=== PATIENT | male | born 1940 | race Caucasian/White ===

== ENCOUNTER 2023-09-10 08:08 | Inpatient (IN) | payer MEDICARE, OTHER, SELFPAY ==
[2023-09-08] VITALS (8 sets, daily range): BP systolic 109–148; BP diastolic 59–93; BMI 21.4
--- NOTE | 2023-09-08 12:24 | ED.GENMED ---
History of Present Illness
General
Chief Complaint: Breathing Problem
Source: patient and spouse
Exam Limitations: none
Time Seen by Provider: 09/08/23 11:41
Travel History
Have you had any contact with someone who has COVID-19?: No
Do you have any symptoms of coronavirus? Fever > 100 degrees, chills, cough, shortness of breath, sore throat, loss of taste or smell, muscle aches, or headache?: Yes
Symptoms:: SOB, cough
History of Present Illness
History of Present Illness:
83-year-old male complaining of shortness of breath and cough. Patient has chronic COPD and is on intermittent oxygen as needed which is new the last 2 to 3 weeks. This has been a slow digression recently. However the last 2 days cough and
shortness of breath has been much more severe. He was on a course of antibiotics and inhaled steroids. This was completed. No chest pain or pleuritic pain.
Past History
Past History
ED Past Medical History: CAD (With stent placement), COPD and Hypercholesterolemia
ED Past Surgical History: Tonsilectomy
Social History
Tobacco: Former smoker
Alcohol: None
Drug: None
Personal:
Review of Systems
Review of Systems
All Other Systems: Not applicable
Constitutional: Denies fever
Respiratory: Reports cough; Denies hemoptysis
Cardiac: Denies chest pain or syncope
Phy Exam
Physical Exam
Physical Exam:
GENERAL: Alert and oriented. Mildly tachypneic at rest.
EYE: Orbits normal.
NECK: Supple, no significant adenopathy.
ENT: Pharynx without erythema
CARDIAC: Regular rate and rhythm without any obvious murmurs.
LUNGS: Recurrent dry cough, tight cough. Mild tachypnea. Diffuse mild expiratory wheezing
ABDOMEN: Soft, without focal tenderness or distention
NEUROLOGICAL: Alert and oriented , grossly non-focal
SKIN: Warm and dry, no rash or lesion, no discoloration, skin intact.
MUSCULOSKELETAL: No edema,no deformity.Good color
PSYCH: Normal and appropriate interaction.
Scores
Heart Failure Risk
Heart Failure Risk Score: Not Applicable
Course
Orders/Labs/Results
Orders:
Orders
09/08/23 11:40
EKG [Electrocardiogram (*1)] Urgent
Reason for Study: Shortness of Breath
EKG- Treatment ONCE
09/08/23 11:51
Cardiac Monitoring- Treatment ONCE
IV Insert/Care/Rem.- Treatment PRN
Albuterol Sulfate [Ventolin Nebules] 7.5 mg INH R NOW STA
Dexamethasone Sod Phosphate [Decadron] 8 mg IV NOW STA
Ipratropium/Albuterol Sulfate [Duoneb] 3 ml INH R NOW STA
O2 Therapy [RESP] Stat
Nasal Cannula Liter Flow: 2 LPM
Titrate/Wean O2 to maintain O2 sat greater than (%): 92
Pulse Ox/cont/shift [RESP] Stat
Quantity: 1
09/08/23 11:52
CR Chest Portable - 1 View Urgent
Comment:
Reason For Exam: sob
Reason Study Needs to be Portable: Unable to Transport
09/08/23 12:00
Blood Culture Q30M
[facility] Source: Blood/Venous
Specimen Description:
09/08/23 12:28
COVID-19 Antigen Urgent
Source: Nasal Swab
09/08/23 12:29
Basic Metabolic Panel Urgent
Complete Blood Count/With Diff Urgent
NT-proBNP Urgent
Troponin I Urgent
Blood Culture Q30M
[facility] Source: Blood/Venous
Specimen Description:
Influenza A+B Rapid Molecular Urgent
[facility] Source: Nasal Swab
Specimen Description:
Abnormal Lab Results
09/08/23
12:29
MCHC 32.8 L g/dL
(33.0-37.0)
Absolute Monos (auto) 0.8 H 10^3/uL
(0.1-0.6)
Absolute Eos (auto) 1.5 H 10^3/uL
(0-0.7)
Eosinophils % 13.8 H %
(0-6)
Carbon Dioxide 31 H mmol/L
(22-30)
BUN 26 H mg/dl
(9-20)
Glucose 123 H mg/dl
(70-99)
09/08/23 12:29
09/08/23 12:29
Vital Signs
Initial and Last Documented VS:
Initial Vital Signs
Temp Pulse Resp BP Pulse Ox
97.8 F 79 17 138/72 93
09/08/23 11:38 09/08/23 11:38 09/08/23 11:38 09/08/23 11:38 09/08/23 11:38
Last Documented Vital Signs
Temp Pulse Resp BP Pulse Ox
97.8 F 93 18 122/63 92
09/08/23 11:38 09/08/23 12:30 09/08/23 12:30 09/08/23 12:07 09/08/23 12:30
*Radiology
Radiology exam reviewed: preliminary read by ED provider (COPD) and radiology read reviewed (COPD)
*Pulse Oximetry
Patient hypoxic: yes
*Critical Care Note
Total Time (30-74mins, 75-104mins- exclusive of procedures): Not Applicable
Data Reviewed
Review of Other/Old Records Reveals: Labs, Records and Testing
Update Note
Update Note:
Patient still diffuse expiratory wheezing. Warrants inpatient management.
ED Attending Note
-
Portions of this chart may have been created with voice recognition software.� Occasional wrong word or��sound alike� substitutions may have occurred due to the inherent limitations of voice recognition software.
Discharge Plan
Departure
Patient Disposition: Admit
Date of Disposition: 09/08/23
Time of Disposition: 13:58
Presentation/result/management discussed w/ accepting MD/DO: Hospitalist
Discharge Problem:
COPD exacerbation
Prescriptions:
No Action
cefuroxime axetil 500 MG tablet
500 mg PO BID 7 Days Qty: 14 0RF
losartan 50 MG tablet
50 mg PO HS
amlodipine 5 MG tablet
5 mg PO DAILY
aspirin 81 MG tablet,delayed release (DR/EC)
81 mg PO BID
albuterol sulfate [Ventolin HFA] 90 MCG/PUFF HFA aerosol inhaler
2 puff inhalation Q4HPRN PRN (Reason: shortness of breath)
rosuvastatin 20 MG tablet
20 mg PO HS
metoprolol tartrate 25 MG tablet
25 mg PO BID
vitamin E (dl, acetate) 100 UNITS capsule
1 dose PO DAILY
hydrochlorothiazide 12.5 MG tablet
12.5 mg PO DAILY
multivitamin with folic acid [Tab-A-Nick] 1 TABLET tablet
1 tab PO DAILY
Referrals:
Milagro Guevara MD [Family Provider] -
Interventions
Interventions:
*Risk Screen - Suicide Last Done: 09/08/23 12:58
*General Assessment Last Done: 09/08/23 12:58
*Neglect/Abuse Screening Last Done: 09/08/23 12:58
ED- Fall Risk Assessment Last Done: 09/08/23 12:58
*ED COVID-19 Vaccine History Last Done: 09/08/23 11:39
ED- Cardiac Assessment Last Done: 09/08/23 12:58
ED- Pulmonary Assessment Last Done: 09/08/23 12:58
[2023-09-08] MEDS: DECADRON 8 MG IV (12:39)
[2023-09-08] MEDS: VENTOLIN NEBULES 7.5 MG INH (12:39)
[2023-09-08] MEDS: DUONEB 3 ML INH ×2 (12:39→19:25)
[2023-09-08 13:10] LABS: % Basophils 1.7 % (0-2); % Eosinophils 13.8 % (0-6); % Immature Granulocytes 0.2 % (0-0.5); % Lymphocytes 24.6 % (20.5-51.1); % Monocytes 7.8 % (1.7-9.3); % Neutrophils 51.9 % (42.2-75.2); Absolute Basophils 0.2 10^3/uL (0-0.2); Absolute Eosinophils 1.5 10^3/uL (0-0.7); Absolute Lymphocytes 2.6 10^3/uL (1.2-3.4); Absolute Monocytes 0.8 10^3/uL (0.1-0.6); Absolute Neutrophils 5.5 10^3/uL (1.4-6.5); Hematocrit 47.5 % (39.0-52.0); Hemoglobin 15.6 g/dL (13.0-18.0); Mean Corp Hgb Conc. 32.8 g/dL (33.0-37.0); Mean Corpuscular Hgb 29.4 pg (27.0-31.0); Mean Corpuscular Volume 89.5 fL (80.0-94.0); Mean Platelet Volume 9.5 fL (7.4-10.4); Nucleated Red Blood Cells % 0 % (-); Platelet Count 315 10^3/uL (130-400); Red Blood Cell Count 5.31 10^6/uL (4.70-6.10); Red Cell Dist. Width 14.1 % (11.5-14.5); White Blood Cell Count 10.6 10^3/uL (4.8-10.8)
[2023-09-08 13:17] LABS: Blood Urea Nitrogen 26 mg/dl (9-20); Calcium 9.9 mg/dl (8.4-10.2); Carbon Dioxide 31 mmol/L (22-30); Chloride 100 mmol/L (98-107); Glucose 123 mg/dl (70-99); Potassium 3.8 mmol/L (3.5-5.1); Sodium 142 mmol/L (135-145); eGFR > 60.00
[2023-09-08 13:27] LABS: COVID-19 Antigen Negative (Negative)
[2023-09-08 13:29] LABS: NT-proBNP 24.1 pg/ml; Troponin I < 0.012 ng/ml
--- NOTE | 2023-09-08 14:08 | HPS.HSE ---
Family Physician
-
Family Physician: Milagro Guevara
Chief Complaint
-
Shortness of breath and cough
History of Present Illness
83-year-old male with history of COPD and current recently started on oxygen as needed, hypertension and CAD with 2 stent who lives independently at home with , presented to the hospital complaining of shortness of breath and cough productive
cough clear yellowish phlegm over the last 4 days, he was exposed to his grandson when he is up respiratory tract symptoms shortly after experienced the above-mentioned symptoms, no subjective fever but admits chills, the shortness of breath with
exertion would bother him the most is a cough especially in the morning, despite using his rescue inhaler and nebulizer frequently throughout the day there is not much improvement, no chest pain or urinary or GI symptom, no headache or vision
change, chest x-ray in the ER clear, given breathing treatment and placed on oxygen in the ER.
He is awake, alert and oriented x 3 hold appropriate conversation, and at the bedside.
Medical History
Past Medical History
Past Medical History: Reports Other
Additional Past Medical History:
COPD
Coronary artery disease status post 2 stent
Hypertension
Dyslipidemia.
Social history: Quit smoking and alcohol more than 20 years ago, he is independent and lives with the ,
Family history: Reviewed and noncontributory
Past Surgical History: Reports Other
Social History
Unable to obtain full social history at this time due to: Other
Family History
Family History: Other
Allergies / Home Medications
Allergies reflects when Allergies were last updated in [employer].
Home Medications with original date entered in [employer]
Allergy/Medication List:
Allergies
Allergy/AdvReac Type Severity Reaction Status Date / Time
No Known Allergies Allergy Verified 09/08/23 11:37
Home Medications
albuterol sulfate 90 mcg/actuation aerosol inhaler (Ventolin HFA) 2 puff inhalation R Q4HPRN PRN shortness of breath 07/16/18
amlodipine 5 mg tablet 5 mg PO DAILY 07/16/18
aspirin 81 mg tablet,delayed release 81 mg PO BID 07/16/18
hydrochlorothiazide 12.5 mg tablet 12.5 mg PO DAILY 07/16/18
losartan 50 mg tablet 50 mg PO HS 07/16/18
metoprolol tartrate 25 mg tablet 25 mg PO BID 07/16/18
multivitamin with folic acid 400 mcg tablet (Tab-A-Nick) 1 tab PO DAILY 07/16/18
rosuvastatin 20 mg tablet 20 mg PO HS 07/16/18
azithromycin 250 mg tablet 250 mg PO MOWEFR 09/08/23
vitamin E (dl, acetate) 45 mg (100 unit) capsule 45 mg PO DAILY 09/08/23
Review of Systems
-
A 12 point ROS was completed and negative except as noted: Yes
Physical Exam
Vital Signs
Vital Signs
Temp Pulse Resp BP Pulse Ox
97.8 F 93 18 122/63 92
09/08/23 11:38 09/08/23 12:30 09/08/23 12:30 09/08/23 12:07 09/08/23 12:30
Physical exam:
General: Awake, alert and oriented x3, not in distress and holds appropriate conversation.
HEENT: On nasal cannula no active discharge, ecchymosis or bruising, moist lips, tongue and mucous membrane.
Eyes: No discharge or red conjunctiva, no nystagmus, pupils are reactive and equal
Neck:Supple, no JVD no bruit no goiter.
Respiratory: Normal AP contour and diameter, normal chest wall movement, normal respiratory effort, no respiratory distress,
Lungs: Diminished air entry bilaterally with bilateral wheezing and rhonchi and congested sound,
Heart: S1, S2 regular, normal rate, no added sound.
Gastrointestinal: Positive bowel sounds, soft, nontender, no guarding or rigidity or organomegaly
Musculoskeletal: , no chest wall abnormality or tenderness. All joints and extremities have good range of motion, no muscle tenderness or any joint swelling or tenderness.
Extremities: No pitting edema, good peripheral pulses, good range of motion
Skin: Warm and dry, no ulceration, normal color.
Neurological: Awake, alert and oriented x3, cranial nerve II-XII grossly intact, speech clear and comprehensive, good muscle tone, normal sensory and motor function
Psychiatric: Normal mood, normal thought and judgment, normal affect,
Physical Exam
General: Other
Laboratory Results
-
09/08/23 12:29
09/08/23 12:29
Laboratory Results
Troponin I < 0.012 ng/ml 09/08/23 12:29
Chest x-ray: No acute cardiopulmonary abnormality.
EKG showed normal sinus rhythm with PVCs, rate around 94, OH 160, QTc 450 otherwise no acute abnormalities.
Data Reviewed
-
Diagnostic Radiology: Image Personally Visualized and interpreted, Discussed with Patient and Discussed with Family
Medical Tests (Nuc Med, Echo, EKG etc): Image Personally Visualized and interpreted, Discussed with Patient and Discussed with Family
Lab Data: Labs Reviewed by me, Discussed with Patient and Discussed with Family
Old Records: Reviewed
Impression/Plan
-
IMPRESSION:
83-year-old male presented to the hospital was sign and symptom of COPD exacerbation likely by viral bronchitis was exposed to the grandson.
Acute COPD exacerbation
Acute bronchitis
Early pneumonia could be a possibility.
Hypertension
CAD status post 2 stent
This lipidemia
PLAN:
Breathing treatment with DuoNeb 4 times daily
Steroid with Decadron 6 mg every 8 hour could be tapered as needed
Cough medication Mucinex 1200 twice daily scheduled on Tessalon as needed
Monitor vital sign
Oxygen as needed keep O2 sat between 88 to 92%.
Hold diuretic and looks dry
IV fluid cautiously
Continue amlodipine and rosuvastatin.
Workups reviewed
All discussed with the patient and his
CODE STATUS full code
DVT prophylaxis: Lovenox
[2023-09-08] MEDS: TESSALON PERLES 200 MG PO ×2 (17:22→22:35)
[2023-09-08] MEDS: LOVENOX 40 MG SC (18:30)
[2023-09-08] MEDS: MUCINEX 1200 MG PO (18:30)
[2023-09-08] MEDS: DUONEB INH (18:52)
[2023-09-08] MEDS: ASPIR LOW (ENTERIC COATED) 81 MG PO (21:15)
[2023-09-08] MEDS: CRESTOR 20 MG PO (21:15)
[2023-09-08] MEDS: ZITHROMAX INFUSION 250 IV (21:15)
[2023-09-08] MEDS: LOPRESSOR 25 MG PO (21:15)
[2023-09-08] MEDS: DECADRON 6 MG IV (21:16)
[2023-09-08] MEDS: COZAAR 50 MG PO (21:28)
[2023-09-09] MEDS: DECADRON 6 MG IV (04:51)
[2023-09-09 07:00] VITALS: BP 152/78
[2023-09-09 07:22] LABS: % Basophils 0.2 % (0-2); % Immature Granulocytes 0.3 % (0-0.5); % Lymphocytes 19.8 % (20.5-51.1); % Monocytes 1.9 % (1.7-9.3); % Neutrophils 77.8 % (42.2-75.2); Absolute Lymphocytes 1.3 10^3/uL (1.2-3.4); Absolute Monocytes 0.1 10^3/uL (0.1-0.6); Hematocrit 43.8 % (39.0-52.0); Hemoglobin 14.8 g/dL (13.0-18.0); Mean Corp Hgb Conc. 33.8 g/dL (33.0-37.0); Mean Corpuscular Volume 88.7 fL (80.0-94.0); Mean Platelet Volume 9.5 fL (7.4-10.4); Nucleated Red Blood Cells % 0 % (-); Platelet Count 309 10^3/uL (130-400); Red Blood Cell Count 4.94 10^6/uL (4.70-6.10); Red Cell Dist. Width 13.8 % (11.5-14.5); White Blood Cell Count 6.5 10^3/uL (4.8-10.8)
[2023-09-09] MEDS: DUONEB 3 ML INH ×4 (07:33→20:13)
[2023-09-09 07:47] LABS: Blood Urea Nitrogen 27 mg/dl (9-20); Calcium 9.6 mg/dl (8.4-10.2); Carbon Dioxide 28 mmol/L (22-30); Chloride 101 mmol/L (98-107); Estimated Creatinine Clearance 56 ml/min; Glucose 131 mg/dl (70-99); Potassium 4.4 mmol/L (3.5-5.1); Sodium 136 mmol/L (135-145); eGFR > 60.00
--- NOTE | 2023-09-09 07:53 | W.PN.HOSP.TC ---
Today's Communication/Plan
-
Dexamethasone to 4 mg every 12
Continue nebs
Oxygen titrated
Obtain sputum
Check procalcitonin if within normal limits can change to p.o. Zithromax for anti-inflammatory effect
Assessment / Plan
Assessment / Plan
83-year-old male with history of COPD and current recently started on oxygen as needed, hypertension and CAD with 2 stent who lives independently at home with , presented to the hospital complaining of shortness of breath and cough productive
cough clear yellowish phlegm over the last 4 days, he was exposed to his grandson when he is up respiratory tract symptoms shortly after experienced the above-mentioned symptoms, no subjective fever but admits chills, the shortness of breath with
exertion would bother him the most is a cough especially in the morning, despite using his rescue inhaler and nebulizer frequently throughout the day there is not much improvement, no chest pain or urinary or GI symptom, no headache or vision
change, chest x-ray in the ER clear, given breathing treatment and placed on oxygen in the ER.
He is awake, alert and oriented x 3 hold appropriate conversation, and at the bedside.
Patient is fully vaccinated for COVID with boosters and influenza vaccine this year/also Pneumovax.
Acute COPD exacerbation
Acute bronchitis
Early pneumonia could be a possibility.
Hypertension
CAD status post 2 stent
This lipidemia
PLAN:
Breathing treatment with DuoNeb 4 times daily
Steroid with Decadron 6 mg every 8 hour could be tapered as needed/presentation this morning which changed to 4 mg every 12
Cough medication Mucinex 1200 twice daily scheduled on Tessalon as needed
Monitor vital sign
Oxygen as needed keep O2 sat between 88 to 92%.
Hold diuretic and looks dry
IV fluid cautiously
For completeness obtain procalcitonin/try and obtain a sputum
Continue amlodipine and rosuvastatin.
Workups reviewed
All discussed with the patient and his
CODE STATUS full code
DVT prophylaxis: Lovenox
Anticipated Discharge: 24 - 48 hours
Subjective/Interval History
-
Date of Service: September 09, 2023
Persisting difficult to produce sputum cough no chest pain presently on 2 L nasal flow oxygen and getting respiratory treatment
Objective Data
-
Labs:
Laboratory Results
09/09/23
06:40
WBC 6.5
Hgb 14.8
Hct 43.8
Plt Count 309
Sodium 136
Potassium 4.4
Chloride 101
Carbon Dioxide 28
BUN 27 H
Creatinine 0.9
Glucose 131 H
Calcium 9.6
Vital Signs:
Vital Signs
Temp Pulse Resp BP Pulse Ox
97.7 F 129 20 139/66 91
09/08/23 21:13 09/08/23 21:28 09/08/23 21:13 09/08/23 21:28 09/08/23 21:13
I&O
09/08/23 09/09/23 09/10/23
05:59 06:59 06:59
Intake Total 250 / 250
Balance 250 / 250
Review of Systems
-
History Source: Patient
Constitutional: Denies Fever
EENT: Reports No Symptoms Reported
Respiratory: Reports Cough and Wheezing
Cardiac: Reports No Symptoms
Abdomen/GI: Reports No Symptoms
Physical Exam
-
General: Well Developed
HEENT: Normocephalic
Respiratory: Wheezes, Rhonchi and Decreased Breath Sounds
Cardiac: Regular Rhythm
GI: Soft, Nontender and Nondistended
Neuro: Awake, Alert and Oriented
Psych: Calm
Data Reviewed
-
Total Time Spent with Patient (in minutes): 56
Labs: Labs Reviewed by me
[2023-09-09] MEDS: LOPRESSOR 25 MG PO ×2 (08:13→21:24)
[2023-09-09] MEDS: NORVASC 5 MG PO (08:14)
[2023-09-09] MEDS: ORETIC 12.5 MG PO (08:14)
[2023-09-09] MEDS: MUCINEX 1200 MG PO ×2 (08:14→21:22)
[2023-09-09] MEDS: ASPIR LOW (ENTERIC COATED) 81 MG PO ×2 (08:14→21:23)
[2023-09-09] MEDS: DECADRON IV ×2 (08:16→08:23)
[2023-09-09 09:14] LABS: Procalcitonin < 0.05 ng/ml (0.0-0.25)
--- NOTE | 2023-09-09 13:45 | CM ---
Addendum entered by Rosalva Crowley 09/09/23 13:53:
Oxygen vendor: [employer] #[phone]
DME: oxygen, nebulizer
Original Note:
Met with patient and spouse at bedside; initial assessment completed
KOHLER form explained and signed @ 1342
Pharmacy verified: [facility]
Patient reported that he and his live in an one floor in-law suite on their daughter's property; 3 steps to enter; bathroom has walk-in shower; grab bar and shower chair
PLOF: reported he is independent with ambulation, steps, and ADLs; Drives
SNF/Rehab/Home Care utilization history: NONE
Transport: will provide transport home
Discharge plan to be determined pending hospital course; director case management will follow up if there are any DC needs
[2023-09-09] MEDS: TESSALON PERLES 200 MG PO ×2 (14:26→21:28)
[2023-09-09 14:30] VITALS: BMI 21.4
[2023-09-09 15:00] VITALS: BP 119/62
[2023-09-09] MEDS: LOVENOX 40 MG SC (17:55)
[2023-09-09] MEDS: ZITHROMAX INFUSION 250 IV (21:11)
[2023-09-09] MEDS: CRESTOR 20 MG PO (21:23)
[2023-09-09] MEDS: COZAAR 50 MG PO (21:23)
[2023-09-09] MEDS: DECADRON 4 MG IV (21:25)
[2023-09-09] MEDS: FLUSH (NSS) 4 FLUSH IV (21:29)
[2023-09-09 23:20] VITALS: BP 125/71
[2023-09-10 06:48] LABS: Hematocrit 45.3 % (39.0-52.0); Hemoglobin 14.9 g/dL (13.0-18.0); Mean Corp Hgb Conc. 32.9 g/dL (33.0-37.0); Mean Corpuscular Volume 88.1 fL (80.0-94.0); Mean Platelet Volume 9.7 fL (7.4-10.4); Platelet Count 339 10^3/uL (130-400); Red Blood Cell Count 5.14 10^6/uL (4.70-6.10); Red Cell Dist. Width 14.1 % (11.5-14.5); White Blood Cell Count 14.6 10^3/uL (4.8-10.8)
[2023-09-10 07:12] LABS: Blood Urea Nitrogen 32 mg/dl (9-20); Calcium 9.7 mg/dl (8.4-10.2); Carbon Dioxide 27 mmol/L (22-30); Chloride 100 mmol/L (98-107); Estimated Creatinine Clearance 63 ml/min; Glucose 133 mg/dl (70-99); Potassium 4.4 mmol/L (3.5-5.1); Sodium 138 mmol/L (135-145); eGFR > 60.00
[2023-09-10] MEDS: NORVASC 5 MG PO (07:53)
[2023-09-10] MEDS: LOPRESSOR 25 MG PO ×2 (07:54→20:29)
[2023-09-10] MEDS: MUCINEX 1200 MG PO ×2 (07:54→20:29)
[2023-09-10] MEDS: ASPIR LOW (ENTERIC COATED) 81 MG PO ×2 (07:54→20:29)
[2023-09-10] MEDS: DUONEB 3 ML INH ×4 (07:54→19:32)
[2023-09-10] MEDS: DECADRON 4 MG IV ×2 (07:54→20:28)
[2023-09-10] MEDS: ORETIC 12.5 MG PO (08:01)
[2023-09-10 08:07] VITALS: BP 149/79
--- NOTE | 2023-09-10 10:13 | W.PN.HOSP.TC ---
Today's Communication/Plan
-
see outlined plan
Assessment / Plan
Assessment / Plan
83-year-old male with history of COPD and current recently started on oxygen as needed, hypertension and CAD with 2 stent who lives independently at home with , presented to the hospital complaining of shortness of breath and cough productive
cough clear yellowish phlegm over the last 4 days, he was exposed to his grandson when he is up respiratory tract symptoms shortly after experienced the above-mentioned symptoms, no subjective fever but admits chills, the shortness of breath with
exertion would bother him the most is a cough especially in the morning, despite using his rescue inhaler and nebulizer frequently throughout the day there is not much improvement, no chest pain or urinary or GI symptom, no headache or vision
change, chest x-ray in the ER clear, given breathing treatment and placed on oxygen in the ER.
He is awake, alert and oriented x 3 hold appropriate conversation, and at the bedside.
Patient is fully vaccinated for COVID with boosters and influenza vaccine this year/also Pneumovax.
Assessment:
Chronic hypoxemic respiratory failure on 2L NC
Acute COPD exacerbation
Acute bronchitis
- still with wheezing this AM
- continue IV Decadron, 4mg q12h
- add doxycycline 100mg BID x 5 days; stop Azithromycin. Noted procal negative.
- continue nebs scheduled and prn
- mucolytics therapy
- pulm consulted
Essential HTN - continue Amlodipine/HCTZ/ARB/BB
CAD s/p stents
HLD
- continue ASA/statin
reports concern for dysphagia outpatient with VSE planned in 48 hours
- ST eval here and VSE ordered.
DVT ppx: Lovenox
Code: Full
Anticipated Discharge: > 48 hours
Subjective/Interval History
-
Date of Service: September 10, 2023
he states he feels 'a little bit' better but remains with wheezing and SOB
denies cp/f/c. No other complaints
Objective Data
-
Labs:
Laboratory Results
09/10/23
06:24
WBC 14.6 H
Hgb 14.9
Hct 45.3
Plt Count 339
Sodium 138
Potassium 4.4
Chloride 100
Carbon Dioxide 27
BUN 32 H
Creatinine 0.8
Glucose 133 H
Calcium 9.7
Vital Signs:
Vital Signs
Temp Pulse Resp BP Pulse Ox
97.4 F 95 16 149/79 99
09/10/23 08:07 09/10/23 08:07 09/10/23 08:07 09/10/23 08:07 09/10/23 08:30
I&O
09/09/23 09/10/23 09/11/23
06:59 06:59 06:59
Intake Total 1510 / 1510
Balance 1510 / 1510
Physical Exam
-
General: No Apparent Distress
HEENT: Normocephalic and Atraumatic
Respiratory: Wheezes and Rhonchi
Cardiac: Regular Rhythm and S1/S2
GI: Soft and Nontender
Genito-urinary: No Costovertebral Tender
Musculoskeletal: No Edema
Neuro: AO x 3
Psych: Calm
Data Reviewed
-
Total Time Spent with Patient (in minutes): 43
Labs: Labs Reviewed by me
[2023-09-10] MEDS: VIBRAMYCIN 100 MG PO ×2 (12:57→20:29)
[2023-09-10 14:29] VITALS: BP 127/70; PULSE 85; O2SAT 94
--- NOTE | 2023-09-10 14:42 | PTOTSP ---
Pt is functionally independent without AD. PT will sign off.
--- NOTE | 2023-09-10 15:01 | CON.PUL ---
Consultation
Consultation Request
Date/Time Consultation Requested: 09/10/2023 - 1028
Date/Time Consultation Performed: 09/10/2023 - 0
Requesting Provider: Dr. Marie
Performing Provider: Dr. Bergman
Reason for Consultation: COPD exacerbation
Medical History
-
Chief Complaint: SOB
History of Present Illness:
83-year-old male with a past medical history of COPD/asthma, pulmonary nodule, GERD and former tobacco use disorder who presents with shortness of breath. Of note, patient follows with us in the [facility] office with Kiera Sandoval/James Beckham with
last office visit on 08/15/2023. Azithromycin TIW was started at that visit, and is continued on Wixela 500mcg with as needed albuterol + DuoNebs 2�3 times daily which was recommended to him. Also recommended Mucinex and Tessalon Perles. He
recommended to continue supplemental oxygen at 2 L/min with exertion. On 09/07 he presented to the ER where he was tachycardic and requiring 2 L/min nasal cannula with SpO2 91%. CXR showed no acute cardiopulmonary process. He was started on
antibiotics, DuoNebs and his home medications and then admitted to the hospitalist service. He has remained on 2-2.5 L/min nasal cannula and now pulmonary consulted for additional recommendations.
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
PSHx: Coronary stents X2, tonsillectomy, back surgery
Past Medical History
Past Medical History: Other (above as per HPI)
Past Surgical History: Other (above as per HPI)
Social History
Tobacco: Former Smoker
Alcohol: None
Drug: None
Family History
Family History: Reviewed & Not Pertinent
Allergies / Home Medications
Allergies
Allergy/AdvReac Type Severity Reaction Status Date / Time
No Known Allergies Allergy Verified 09/08/23 11:37
Home Medications
Medication Instructions Recorded Confirmed Last Taken Type
albuterol sulfate 90 mcg/actuation 2 puff inhalation R Q4HPRN PRN 07/16/18 09/08/23 Unknown History
aerosol inhaler (Ventolin HFA) shortness of breath
amlodipine 5 mg tablet 5 mg PO DAILY Blood Pressure 07/16/18 09/08/23 09/08/23 History
aspirin 81 mg tablet,delayed 81 mg PO BID Blood Clot 07/16/18 09/08/23 09/08/23 History
release Prevention/Tx
hydrochlorothiazide 12.5 mg tablet 12.5 mg PO DAILY Fluid 07/16/18 09/08/23 09/08/23 History
Retention/Swelling
losartan 50 mg tablet 50 mg PO HS Blood Pressure 07/16/18 09/08/23 09/07/23 History
metoprolol tartrate 25 mg tablet 25 mg PO BID Blood Pressure 07/16/18 09/08/23 09/08/23 History
multivitamin with folic acid 400 1 tab PO DAILY Supplement 07/16/18 09/08/23 09/08/23 History
mcg tablet (Tab-A-Nick)
rosuvastatin 20 mg tablet 20 mg PO HS High Cholesterol 07/16/18 09/08/23 09/07/23 History
azithromycin 250 mg tablet 250 mg PO MOWEFR Infection 09/08/23 09/08/23 09/07/23 History
vitamin E (dl, acetate) 45 mg (100 45 mg PO DAILY Supplement 09/08/23 09/08/23 09/08/23 History
unit) capsule
Review of Systems
-
History Source: Patient
All other systems: Negative unless noted (12 point ROS performed and is negative unless mentioned above.)
Vitals / Labs / Diagnostic Testing
Vital Signs
Temp Pulse Resp BP Pulse Ox
97.5 F 88 18 122/70 92
09/10/23 15:03 09/10/23 15:14 09/10/23 15:14 09/10/23 15:03 09/10/23 15:14
Lab Data
09/10/23 06:24
09/10/23 06:24
Microbiology
09/08/23 14:46 Blood/Venous Blood Culture - Preliminary
No Growth in 48 hours- Final report to follow
09/08/23 12:29 Blood/Venous Blood Culture - Preliminary
No Growth in 48 hours- Final report to follow
09/08/23 12:29 Nasal Swab Influenza Types A & B (ROULA) - Final
Negative for Influenza A & B, NAAT
Negative results must be combined with clinical observations
and patient history.
Nucleic Acid Amplification test (NAAT)performed on the
[employer] platform.
Diagnostic Testing:
Physical Exam
-
HEENT: Normocephalic and Anicteric
Cardiovascular: S1/S2 and Peripheral Edema (negative)
Respiratory: Wheeze (negative), Rales, Rhonchi (negative), Non-Labored Respirations and Other (coarse BS bilaterally)
GI: Soft, Non Distended, Non Tender and Normal Bowel Sounds
Neurology: Awake and Alert
Skin: Warm and Dry
General: Respiratory Distress (negative) and Comfortable
Assessment
-
Assessment: 83-year-old male with a past medical history of COPD/asthma, pulmonary nodule, GERD and former tobacco use disorder who presents with shortness of breath. Of note, patient follows with us in the [facility] office with Kiera Sandoval/James
Bhavani with last office visit on 08/15/2023. Azithromycin TIW was started at that visit, and is continued on Wixela 500mcg with as needed albuterol + DuoNebs 2�3 times daily which was recommended to him. Also recommended Mucinex and Tessalon
Perles. He recommended to continue supplemental oxygen at 2 L/min with exertion. On 09/07 he presented to the ER where he was tachycardic and requiring 2 L/min nasal cannula with SpO2 91%. CXR showed no acute cardiopulmonary process. He was
started on antibiotics, DuoNebs and his home medications and then admitted to the hospitalist service. He has remained on 2-2.5 L/min nasal cannula and now pulmonary consulted for additional recommendations.
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
history of skin cancer
Impression:
#Acute COPD exacerbation (moderate severity at baseline with post-BD FEV1 of 1.3L/55%)
#Acute on chronic respiratory failure with hypoxemia - currently on 2.5L/min NC
#Abnormal swallow study (done today) which is concerning for esophageal dysphagia
#Pulmonary nodules -
Multiple pulmonary nodules and pulmonary masses with the largest measures 4.5 cm bandlike in the medial CROW at the level of the AP window. Its interval development since CT chest on 05/31/2023 suggest a likely
benign etiology.
New 4 cm pleural-based area of parenchymal airspace disease in the posterior medial basilar portion of the LLL, with at PET avidity of 4.5 SUV and 4.7 SUV max on delayed imaging.
#Former tobacco use disorder
Plan:
- Continue LABA/ICS with Symbicort and prn nebulized bronchodilators (DuoNebs QID)
- Continue systemic steroids with decadron 4mg IV q12hr and taper as tolerate
- Aspiration precautions as per INFORMATION SYSTEMS SECURITY ANALYST
- Maintain SpO2 >88% and <96% - Prior 6 MWT from 08/15/2023 showed yoshi SpO2 of 91% and patient did not require oxygen therapy after walking 750 feet total
- Maintain MAP >65
- Continue Doxy 100mg PO q12hr (assure pt is eating prior to consuming PO ABx as this can cause nausea/vomiting)
- Follow up blood Cx X2 (collected 09/07); check sputum Cx and legionella/strep pneumonia urine antigens
- Trend leukocytes
- Continue mucolytics
- Goal HR 60-100 bpm
- Replete electrolytes with goal K>4, Mg>2
- DVT ppx: LMWH
I have spent 56 minutes with a moderate level of medical decision making. I have reviewed prior imaging including PET/CT from 06/2023 and CXR from 09/08/2023, and also reviewed outpatient office notes from [facility]/pulmonary.
Data:
CXR 09-08-2023: No acute cardiopulmonary process.
PET/CT Whole-Body Skull-mid thigh 06-28-2023:
IMPRESSION:
There are several probably benign pulmonary lesions which demonstrate low-level FDG avidity, however, some areas increase in FDG avidity on delayed imaging and follow-up of these pulmonary lesions with CT chest in 6 months is recommended to exclude
more aggressive pathology.
These lesions include:
1). 1.5 cm spiculated pulmonary density in the medial aspect of the right upper lobe measuring 2.2 SUV max on initial imaging and 2.0 SUV max on delayed imaging
2). 1.9 cm pleural-based pulmonary lesion in the superior segment of the right lower lobe which measures 2.1 SUV max on initial imaging and 2.4 SUV max on delayed imaging
3). New 4.5 cm bandlike area of parenchymal airspace disease in the medial aspect of the left upper lobe at the level of the aorticopulmonary window measuring 8.2 SUV max on initial imaging an 8.7 SUV max on delayed imaging. Despite the relatively
high FDG avidity of this area, its interval development since the 05/31/2023 CT scan suggests probable benign etiology.
4). New 4 cm pleural-based area of parenchymal airspace disease in the posterior medial basilar portion of the left lower lobe which measures 4.5 SUV max on initial imaging and 4.7 SUV max on delayed imaging
5). New 1 cm pulmonary mass in the posterior basilar portion of the lingula which measures 1.6 SUV maximum initial imaging and 1.9 SUV max on delayed imaging
PFT 07-26-2022:
FEV1/FVC: 49 --> 51
FEV1: 63% --> 72% (1.73L) which is a +15% change with BD
FVC: 90% --> 100% (3.41L) which is a +11% change with BD
NWW47-35%: 33% --> 42%, which is a +26% change with BD
T% (6.9L)
RV: 118%
DLco: 24%
VA: 83% (5.26L)
DLco/VA: 28%
[2023-09-10 15:03] VITALS: BP 122/70
--- NOTE | 2023-09-10 15:06 | PTOTSP ---
Video Swallow Examination
Patient presents with WFL oral, mild pharyngeal dysphagia, and concern for possible esophageal dysphagia on sweep of esophagus (retention). Aspiration with a spontaneous effective cough occurred with consecutive drinking of mildly thick liquids due
to decreased sustained laryngeal closure. There was mild-moderate vallecular residue with solids due to decreased tongue based retraction which minimally reduced with secondary swallows and liquid wash.
Recommend:
1. IDDSI Level 6 (Soft/bite sized), IDDSI Level 0 (Thin Liquids)
2. Strategies: small sips/bites, double swallows, reflux precautions
3. Medications - in applesauce
4. GI consult to assess for esophageal dysphagia
5. Will continue to follow for dysphagia tx at the acute care level for pharyngeal exercises and education in compensations.
[2023-09-10] MEDS: LOVENOX 40 MG SC (18:35)
[2023-09-10] MEDS: MELATONIN 5 MG PO (21:41)
[2023-09-10] MEDS: COZAAR 50 MG PO (21:41)
[2023-09-10] MEDS: CRESTOR 20 MG PO (21:41)
[2023-09-10 23:28] VITALS: BP 115/62
[2023-09-11 06:51] LABS: Hematocrit 43.8 % (39.0-52.0); Hemoglobin 14.9 g/dL (13.0-18.0); Mean Corpuscular Hgb 29.7 pg (27.0-31.0); Mean Corpuscular Volume 87.4 fL (80.0-94.0); Mean Platelet Volume 9.7 fL (7.4-10.4); Platelet Count 322 10^3/uL (130-400); Red Blood Cell Count 5.01 10^6/uL (4.70-6.10); Red Cell Dist. Width 14.2 % (11.5-14.5); White Blood Cell Count 13.2 10^3/uL (4.8-10.8)
[2023-09-11 07:11] LABS: Blood Urea Nitrogen 37 mg/dl (9-20); Calcium 9.5 mg/dl (8.4-10.2); Carbon Dioxide 27 mmol/L (22-30); Chloride 104 mmol/L (98-107); Estimated Creatinine Clearance 56 ml/min; Glucose 127 mg/dl (70-99); Potassium 4.4 mmol/L (3.5-5.1); Sodium 136 mmol/L (135-145); eGFR > 60.00
[2023-09-11] MEDS: ORETIC 12.5 MG PO (07:33)
[2023-09-11] MEDS: ASPIR LOW (ENTERIC COATED) 81 MG PO ×2 (07:33→19:55)
[2023-09-11] MEDS: MUCINEX 1200 MG PO ×2 (07:33→19:55)
[2023-09-11] MEDS: VIBRAMYCIN 100 MG PO ×2 (07:34→19:55)
[2023-09-11] MEDS: DECADRON 4 MG IV ×2 (07:34→19:54)
[2023-09-11] MEDS: LOPRESSOR 25 MG PO ×2 (07:34→19:55)
[2023-09-11] MEDS: NORVASC 5 MG PO (07:34)
[2023-09-11] MEDS: DUONEB 3 ML INH ×4 (07:36→20:05)
[2023-09-11 08:00] VITALS: BP 138/71
--- NOTE | 2023-09-11 08:17 | W.PN.PUL3 ---
Today's Communication / Plan
-
Continue systemic steroids and wean to OCS once patient is now wheezing or having frequent coughing spells
Continue supplemental oxygen and titrate to maintain SpO2 >88%
Up OOB as tolerated
Encourage incentive spirometer
Pulmonary will continue to follow
Assessment
-
Assessment: 83-year-old male with a past medical history of COPD/asthma, pulmonary nodule, GERD and former tobacco use disorder who presents with shortness of breath. Of note, patient follows with us in the [facility] office with Kiera Sandoval/James
Bhavani with last office visit on 08/15/2023. Azithromycin TIW was started at that visit, and is continued on Wixela 500mcg with as needed albuterol + DuoNebs 2�3 times daily which was recommended to him. Also recommended Mucinex and Tessalon
Mazin. He recommended to continue supplemental oxygen at 2 L/min with exertion. On 09/07 he presented to the ER where he was tachycardic and requiring 2 L/min nasal cannula with SpO2 91%. CXR showed no acute cardiopulmonary process. He was
started on antibiotics, DuoNebs and his home medications and then admitted to the hospitalist service. He has remained on 2-2.5 L/min nasal cannula and now pulmonary consulted for additional recommendations.
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
history of skin cancer
Impression:
#Acute COPD exacerbation (moderate severity at baseline with post-BD FEV1 of 1.3L/55%) - he believes he caught a virus from his 3 year old grandchild
#Acute on chronic respiratory failure with hypoxemia - currently on 2.5L/min NC
#Abnormal swallow study (done 09/10/2023) which is concerning for esophageal dysphagia
#Pulmonary nodules -
Multiple pulmonary nodules and pulmonary masses with the largest measures 4.5 cm bandlike in the medial CROW at the level of the AP window. Its interval development since CT chest on 05/31/2023 suggest a likely
benign etiology.
New 4 cm pleural-based area of parenchymal airspace disease in the posterior medial basilar portion of the LLL, with at PET avidity of 4.5 SUV and 4.7 SUV max on delayed imaging.
#Former tobacco use disorder
Plan:
- Continue LABA/ICS with Symbicort and prn nebulized bronchodilators (DuoNebs QID)
- Continue systemic steroids with decadron 4mg IV q12hr and taper as tolerated --> once patient is not wheezing or having frequent coughing spells then we can TRX to OCS starting at 40mg
- Aspiration precautions as per CUSHION MAT MAKER
- Maintain SpO2 >88% and <96% - Prior 6 MWT from 08/15/2023 showed yoshi SpO2 of 91% and patient did not require oxygen therapy after walking 750 feet total
- Maintain MAP >65
- Continue Doxy 100mg PO q12hr (assure pt is eating prior to taking PO ABx as this can cause significant nausea/vomiting)
- Follow up blood Cx X2 (collected 09/07); check sputum Cx if pt can provide a reliable sample; negative urine legionella/strep pneumonia antigens
- Trend leukocytes
- Continue mucolytics
- outpatient management of his lung nodules --> will order for end of this month as this will be a 3 month interval from his last PET/CT done on 06/28/2023
- Goal HR 60-100 bpm
- Replete electrolytes with goal K>4, Mg>2
- DVT ppx: LMWH
I have spent 37 minutes with a moderate level of medical decision making. I have reviewed prior imaging including PET/CT from 06/2023 and CXR from 09/08/2023, and also reviewed outpatient office notes from [facility]/pulmonary.
Data:
CXR 09-08-2023: No acute cardiopulmonary process.
PET/CT Whole-Body Skull-mid thigh 06-28-2023:
IMPRESSION:
There are several probably benign pulmonary lesions which demonstrate low-level FDG avidity, however, some areas increase in FDG avidity on delayed imaging and follow-up of these pulmonary lesions with CT chest in 6 months is recommended to exclude
more aggressive pathology.
These lesions include:
1). 1.5 cm spiculated pulmonary density in the medial aspect of the right upper lobe measuring 2.2 SUV max on initial imaging and 2.0 SUV max on delayed imaging
2). 1.9 cm pleural-based pulmonary lesion in the superior segment of the right lower lobe which measures 2.1 SUV max on initial imaging and 2.4 SUV max on delayed imaging
3). New 4.5 cm bandlike area of parenchymal airspace disease in the medial aspect of the left upper lobe at the level of the aorticopulmonary window measuring 8.2 SUV max on initial imaging an 8.7 SUV max on delayed imaging. Despite the relatively
high FDG avidity of this area, its interval development since the 05/31/2023 CT scan suggests probable benign etiology.
4). New 4 cm pleural-based area of parenchymal airspace disease in the posterior medial basilar portion of the left lower lobe which measures 4.5 SUV max on initial imaging and 4.7 SUV max on delayed imaging
5). New 1 cm pulmonary mass in the posterior basilar portion of the lingula which measures 1.6 SUV maximum initial imaging and 1.9 SUV max on delayed imaging
PFT 07-26-2022:
FEV1/FVC: 49 --> 51
FEV1: 63% --> 72% (1.73L) which is a +15% change with BD
FVC: 90% --> 100% (3.41L) which is a +11% change with BD
CED66-86%: 33% --> 42%, which is a +26% change with BD
T% (6.9L)
RV: 118%
DLco: 24%
VA: 83% (5.26L)
DLco/VA: 28%
Subjective Data
-
Date of Service:
Date of Service: September 11, 2023
Chief Complaint: Pulmonary Follow Up
Subjective:
Patient seen and evaluated this morning at bedside. He says he's been getting heartburn after eating today. Currently on 2.5 L/min nasal cannula. No acute events reported from overnight. He denies headache, chest pain, fevers or chills.
Review of Systems
General: Other (Negative unless mentioned above)
Objective Data
Data Reviewed
Vital Signs / I&O / Oxygen:
Vital Signs
Temp Pulse Resp BP Pulse Ox
97.4 F 86 20 138/71 95
09/11/23 08:00 09/11/23 08:00 09/11/23 08:00 09/11/23 08:00 09/11/23 08:00
Intake and Output
09/10/23 09/11/23 09/12/23
06:59 06:59 06:59
Intake Total 1510 / 1510
Balance 1510 / 1510
SaO2 95
Nasal Cannula flow liters per 2
minute
Physical Exam
General: Respiratory Distress (negative) and Comfortable
HEENT: Normocephalic and Anicteric
Cardiovascular: S1-S2 and Peripheral Edema (negative)
Respiratory: Wheeze (lower lobes to middle lung swan b/l), Crackles (negative), Rhonchi (negative) and Non-Labored Respirations
GI: Soft, Non Distended and Non Tender
Neurology: AO x 3
Skin: Warm and Dry
Labs/Micro/Reports
Lab Data
09/11/23 06:06
09/11/23 06:06
Microbiology
09/08/23 14:46 Blood/Venous Blood Culture - Preliminary
No Growth in 48 hours- Final report to follow
09/08/23 12:29 Blood/Venous Blood Culture - Preliminary
No Growth in 48 hours- Final report to follow
09/08/23 12:29 Nasal Swab Influenza Types A & B (ROULA) - Final
Negative for Influenza A & B, NAAT
Negative results must be combined with clinical observations
and patient history.
Nucleic Acid Amplification test (NAAT)performed on the
[employer] platform.
--- NOTE | 2023-09-11 09:45 | PTOTSP ---
Orders received. Chart reviewed. Pt admitted with COPD exacerbation. Currently independent with basic self care, transfers and mobility in room. Nursing in agreement. No skilled OT indicated at this time
--- NOTE | 2023-09-11 11:05 | W.PN.HOSP.TC ---
Today's Communication/Plan
-
continue IV steroids wean O2
follow pulm recs
Assessment / Plan
Assessment / Plan
83-year-old male with history of COPD and current recently started on oxygen as needed, hypertension and CAD with 2 stent who lives independently at home with , presented to the hospital complaining of shortness of breath and cough productive
cough clear yellowish phlegm over the last 4 days, he was exposed to his grandson when he is up respiratory tract symptoms shortly after experienced the above-mentioned symptoms, no subjective fever but admits chills, the shortness of breath with
exertion would bother him the most is a cough especially in the morning, despite using his rescue inhaler and nebulizer frequently throughout the day there is not much improvement, no chest pain or urinary or GI symptom, no headache or vision
change, chest x-ray in the ER clear, given breathing treatment and placed on oxygen in the ER.
He is awake, alert and oriented x 3 hold appropriate conversation, and at the bedside.
Patient is fully vaccinated for COVID with boosters and influenza vaccine this year/also Pneumovax.
Assessment:
Chronic hypoxemic respiratory failure on 2L NC
Acute COPD exacerbation
Acute bronchitis
- continue IV Decadron, 4mg q12h; possibly transition to PO tomorrow
- continue doxycycline 100mg BID x 5 days; stop Azithromycin. Noted procal negative. strep/legionella pending
- continue nebs scheduled and prn
- mucolytics therapy
- pulm following
Essential HTN - continue Amlodipine/HCTZ/ARB/BB
CAD s/p stents
HLD
- continue ASA/statin
reports concern for dysphagia outpatient with VSE planned in 48 hours
- IDDSI Level 6 (Soft/bite sized), IDDSI Level 0 (Thin Liquids)
DVT ppx: Lovenox
Code: Full
Anticipated Discharge: 24 - 48 hours
Subjective/Interval History
-
Date of Service: September 11, 2023
reports wheezing and cough improving
Objective Data
-
Labs:
Laboratory Results
09/11/23
06:06
WBC 13.2 H
Hgb 14.9
Hct 43.8
Plt Count 322
Sodium 136
Potassium 4.4
Chloride 104
Carbon Dioxide 27
BUN 37 H
Creatinine 0.9
Glucose 127 H
Calcium 9.5
Vital Signs:
Vital Signs
Temp Pulse Resp BP Pulse Ox
97.4 F 86 20 138/71 95
09/11/23 08:00 09/11/23 08:00 09/11/23 08:00 09/11/23 08:00 09/11/23 08:00
I&O
09/10/23 09/11/23 09/12/23
06:59 06:59 06:59
Intake Total 1510 / 1510
Balance 1510 / 1510
Physical Exam
-
General: No Apparent Distress
HEENT: Normocephalic and Atraumatic
Respiratory: Wheezes
Cardiac: Regular Rhythm and S1/S2
GI: Soft
Genito-urinary: No Costovertebral Tender
Neuro: AO x 3
Hematologic / Lymphatic: No Lymphadenopathy
Psych: Calm
Data Reviewed
-
Total Time Spent with Patient (in minutes): 41
Labs: Labs Reviewed by me
[2023-09-11] MEDS: SYMBICORT 160/4.5 MCG INHALER 2 PUFF INH ×2 (11:17→20:05)
[2023-09-11] MEDS: PEPCID 20 MG PO ×2 (12:36→19:55)
--- NOTE | 2023-09-11 15:23 | CM ---
Reviewed chart, per PT/OT patient is functionally at baseline level. Will return home when stable. Will watch for o2 needs.
Plan: Case management will continue to follow and assist with discharge planning. Home when medically cleared, will need to watch for o2.
[2023-09-11 15:28] VITALS: BP 121/63
[2023-09-11] MEDS: LOVENOX 40 MG SC (17:34)
[2023-09-11] MEDS: CRESTOR 20 MG PO (21:25)
[2023-09-11] MEDS: COZAAR 50 MG PO (21:25)
[2023-09-11] MEDS: MELATONIN 3 MG PO (21:25)
[2023-09-11 23:14] VITALS: BP 104/72
[2023-09-12 06:46] LABS: Hematocrit 42.5 % (39.0-52.0); Hemoglobin 14.8 g/dL (13.0-18.0); Mean Corp Hgb Conc. 34.8 g/dL (33.0-37.0); Mean Platelet Volume 9.6 fL (7.4-10.4); Platelet Count 313 10^3/uL (130-400); Red Blood Cell Count 4.94 10^6/uL (4.70-6.10); Red Cell Dist. Width 14.4 % (11.5-14.5); White Blood Cell Count 12.4 10^3/uL (4.8-10.8)
[2023-09-12 07:11] LABS: Blood Urea Nitrogen 40 mg/dl (9-20); Calcium 9.3 mg/dl (8.4-10.2); Carbon Dioxide 25 mmol/L (22-30); Chloride 105 mmol/L (98-107); Estimated Creatinine Clearance 72 ml/min; Glucose 132 mg/dl (70-99); Potassium 4.3 mmol/L (3.5-5.1); Sodium 137 mmol/L (135-145); eGFR > 60.00
[2023-09-12 07:30] VITALS: BP 144/69
[2023-09-12] MEDS: DUONEB 3 ML INH ×4 (07:33→19:45)
[2023-09-12] MEDS: SYMBICORT 160/4.5 MCG INHALER 2 PUFF INH ×2 (07:34→19:44)
[2023-09-12] MEDS: LOPRESSOR 25 MG PO ×2 (08:03→20:25)
[2023-09-12] MEDS: ASPIR LOW (ENTERIC COATED) 81 MG PO ×2 (08:03→20:25)
[2023-09-12] MEDS: MUCINEX 1200 MG PO ×2 (08:03→20:25)
[2023-09-12] MEDS: ORETIC 12.5 MG PO (08:03)
[2023-09-12] MEDS: VIBRAMYCIN 100 MG PO ×2 (08:03→20:25)
[2023-09-12] MEDS: PEPCID 20 MG PO ×2 (08:03→20:25)
[2023-09-12] MEDS: NORVASC 5 MG PO (08:03)
[2023-09-12] MEDS: DECADRON 4 MG IV ×2 (08:04→20:25)
[2023-09-12] MEDS: FLUSH (NSS) 2 FLUSH IV (08:06)
--- NOTE | 2023-09-12 08:53 | W.PN.PUL3 ---
Today's Communication / Plan
-
Continue systemic steroids and wean to OCS tomorrow now that patient is not wheezing and his cough has markedly improved as well
Continue supplemental oxygen and titrate to maintain SpO2 >88%
Up OOB as tolerated
Encourage incentive spirometer
Patient is continuing to markedly improve. If he remains stable tomorrow with no acute events reported from overnight, then we can check home O2 assessment prior to discharge, and DC home with a prednisone taper and follow-up with our office within
1-2 weeks.
Assessment
-
Assessment: 83-year-old male with a past medical history of COPD/asthma, pulmonary nodule, GERD and former tobacco use disorder who presents with shortness of breath. Of note, patient follows with us in the [facility] office with Kiera Sandoval/James
Bhavani with last office visit on 08/15/2023. Azithromycin TIW was started at that visit, and is continued on Wixela 500mcg with as needed albuterol + DuoNebs 2�3 times daily which was recommended to him. Also recommended Mucinex and Tessalon
Mazin. He recommended to continue supplemental oxygen at 2 L/min with exertion. On 09/07 he presented to the ER where he was tachycardic and requiring 2 L/min nasal cannula with SpO2 91%. CXR showed no acute cardiopulmonary process. He was
started on antibiotics, DuoNebs and his home medications and then admitted to the hospitalist service. He has remained on 2-2.5 L/min nasal cannula and now pulmonary consulted for additional recommendations.
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
history of skin cancer
Impression:
#Acute COPD exacerbation (moderate severity at baseline with post-BD FEV1 of 1.3L/55%) - he believes he caught a virus from his 3 year old grandchild
#Acute on chronic respiratory failure with hypoxemia - currently on 2.5L/min NC
#Abnormal swallow study (done 09/10/2023) which is concerning for esophageal dysphagia
#Pulmonary nodules -
Multiple pulmonary nodules and pulmonary masses with the largest measures 4.5 cm bandlike in the medial CROW at the level of the AP window. Its interval development since CT chest on 05/31/2023 suggest a likely
benign etiology.
New 4 cm pleural-based area of parenchymal airspace disease in the posterior medial basilar portion of the LLL, with at PET avidity of 4.5 SUV and 4.7 SUV max on delayed imaging.
#Former tobacco use disorder
Plan:
- Continue LABA/ICS with Symbicort and prn nebulized bronchodilators (DuoNebs QID)
- Continue systemic steroids - currently on decadron 4mg IV q12hr --> will taper down to prednisone starting at 50mg and reduce by 10mg every 4th day until off. and taper as tolerated
- Aspiration precautions as per [employer]
- Maintain SpO2 >88% and <96% - Prior 6 MWT from 08/15/2023 showed yoshi SpO2 of 91% and patient did not require oxygen therapy after walking 750 feet total
- Considering pt's acute flare, I will check walking O2 assessment prior to discharge (tentatively scheduled for tomorrow)
- Maintain MAP >65
- Continue Doxy 100mg PO q12hr (assure pt is eating prior to taking PO ABx as this can cause significant nausea/vomiting)
- Follow up blood Cx X2 (collected 09/07); check sputum Cx if pt can provide a reliable sample; negative urine legionella/strep pneumonia antigens
- Trend leukocytes
- Continue mucolytics
- outpatient management of his lung nodules --> will order for end of this month as this will be a 3 month interval from his last PET/CT done on 06/28/2023
- Goal HR 60-100 bpm
- Replete electrolytes with goal K>4, Mg>2
- DVT ppx: LMWH
Patient is continuing to markedly improve. If he remains stable tomorrow with no acute events reported from overnight, then we can check home O2 assessment prior to discharge, and DC home with a prednisone taper and follow-up with our office within
1-2 weeks.
A moderate level of medical decision making was used for this encounter.
Data:
CXR 09-08-2023: No acute cardiopulmonary process.
PET/CT Whole-Body Skull-mid thigh 06-28-2023:
IMPRESSION:
There are several probably benign pulmonary lesions which demonstrate low-level FDG avidity, however, some areas increase in FDG avidity on delayed imaging and follow-up of these pulmonary lesions with CT chest in 6 months is recommended to exclude
more aggressive pathology.
These lesions include:
1). 1.5 cm spiculated pulmonary density in the medial aspect of the right upper lobe measuring 2.2 SUV max on initial imaging and 2.0 SUV max on delayed imaging
2). 1.9 cm pleural-based pulmonary lesion in the superior segment of the right lower lobe which measures 2.1 SUV max on initial imaging and 2.4 SUV max on delayed imaging
3). New 4.5 cm bandlike area of parenchymal airspace disease in the medial aspect of the left upper lobe at the level of the aorticopulmonary window measuring 8.2 SUV max on initial imaging an 8.7 SUV max on delayed imaging. Despite the relatively
high FDG avidity of this area, its interval development since the 05/31/2023 CT scan suggests probable benign etiology.
4). New 4 cm pleural-based area of parenchymal airspace disease in the posterior medial basilar portion of the left lower lobe which measures 4.5 SUV max on initial imaging and 4.7 SUV max on delayed imaging
5). New 1 cm pulmonary mass in the posterior basilar portion of the lingula which measures 1.6 SUV maximum initial imaging and 1.9 SUV max on delayed imaging
PFT 07-26-2022:
FEV1/FVC: 49 --> 51
FEV1: 63% --> 72% (1.73L) which is a +15% change with BD
FVC: 90% --> 100% (3.41L) which is a +11% change with BD
XXV21-88%: 33% --> 42%, which is a +26% change with BD
T% (6.9L)
RV: 118%
DLco: 24%
VA: 83% (5.26L)
DLco/VA: 28%
Subjective Data
-
Date of Service:
Date of Service: September 12, 2023
Chief Complaint: Pulmonary Follow Up
Subjective:
Patient seen and evaluated today at bedside. He still has a cough but is markedly better compared to when he first was admitted. He is on 2 L/min nasal cannula, shortness of breath is better. He would like to go home tomorrow. He denies any
chest pain, headache, fevers or chills. Afebrile overnight.
Review of Systems
General: Other (12 point ROS performed and is negative unless mentioned above.)
Objective Data
Data Reviewed
Vital Signs / I&O / Oxygen:
Vital Signs
Temp Pulse Resp BP Pulse Ox
97.7 F 89 16 144/69 97
09/12/23 07:30 09/12/23 11:14 09/12/23 11:14 09/12/23 08:03 09/12/23 11:14
Intake and Output
09/11/23 09/12/23 09/13/23
06:59 06:59 06:59
Intake Total 960 / 960
Output Total 400 / 400
Balance 560 / 560
SaO2 97
Nasal Cannula flow liters per 2
minute
Physical Exam
General: Respiratory Distress (negative) and Comfortable
HEENT: Normocephalic and Anicteric
Cardiovascular: S1-S2 and Peripheral Edema (negative)
Respiratory: Clear, Wheeze (negative), Crackles (negative), Rhonchi (negative) and Non-Labored Respirations
GI: Soft, Non Distended and Non Tender
Neurology: AO x 3
Skin: Warm and Dry
Labs/Micro/Reports
Lab Data
09/12/23 06:15
09/12/23 06:15
Microbiology
09/08/23 14:46 Blood/Venous Blood Culture - Preliminary
No Growth in 72 hours- Final report to follow
09/08/23 12:29 Blood/Venous Blood Culture - Preliminary
No Growth in 72 hours- Final report to follow
09/11/23 10:49 Urine Legionella Urinary Antigen - Final
Negative for Legionella pneumophila Serogroup 1 antigen.
A negative result does not rule out the possiblity of
Legionella infection due to other serogroups or species of
Legionella. Clinical correlation is recommended.
09/11/23 10:49 Urine Streptococcus pneumoniae Antigen (M - Final
Negative for Streptococcus pneumoniae antigen.
A negative result does not exclude infection with
Streptococcus pneumoniae. Clinical correlation is
recommended.
--- NOTE | 2023-09-12 12:29 | W.PN.HOSP.TC ---
Today's Communication/Plan
-
continue current plan
Assessment / Plan
Assessment / Plan
83-year-old male with history of COPD and current recently started on oxygen as needed, hypertension and CAD with 2 stent who lives independently at home with , presented to the hospital complaining of shortness of breath and cough productive
cough clear yellowish phlegm over the last 4 days, he was exposed to his grandson when he is up respiratory tract symptoms shortly after experienced the above-mentioned symptoms, no subjective fever but admits chills, the shortness of breath with
exertion would bother him the most is a cough especially in the morning, despite using his rescue inhaler and nebulizer frequently throughout the day there is not much improvement, no chest pain or urinary or GI symptom, no headache or vision
change, chest x-ray in the ER clear, given breathing treatment and placed on oxygen in the ER.
He is awake, alert and oriented x 3 hold appropriate conversation, and at the bedside.
Patient is fully vaccinated for COVID with boosters and influenza vaccine this year/also Pneumovax.
Assessment:
Chronic hypoxemic respiratory failure on 2L NC
Acute COPD exacerbation
Acute bronchitis
- continue IV Decadron, 4mg q12h; possibly transition to PO tomorrow
- continue doxycycline 100mg BID x 3/5 days; stop Azithromycin. Noted procal negative. strep/legionella pending
- continue nebs scheduled and prn
- mucolytics therapy
- pulm following
Essential HTN - continue Amlodipine/HCTZ/ARB/BB
CAD s/p stents
HLD
- continue ASA/statin
reports concern for dysphagia outpatient with VSE planned in 48 hours
- IDDSI Level 6 (Soft/bite sized), IDDSI Level 0 (Thin Liquids)
Heartburn/GERD
- H2 graciela.
- if recurrent, then Carafate
DVT ppx: Lovenox
Code: Full
Anticipated Discharge: Within 24 hours
Subjective/Interval History
-
Date of Service: September 12, 2023
reports improving heartburn
breathing improving, less cough, less wheezing
Objective Data
-
Labs:
Laboratory Results
09/12/23
06:15
WBC 12.4 H
Hgb 14.8
Hct 42.5
Plt Count 313
Sodium 137
Potassium 4.3
Chloride 105
Carbon Dioxide 25
BUN 40 H
Creatinine 0.7
Glucose 132 H
Calcium 9.3
Vital Signs:
Vital Signs
Temp Pulse Resp BP Pulse Ox
97.7 F 89 16 144/69 97
09/12/23 07:30 09/12/23 11:14 09/12/23 11:14 09/12/23 08:03 09/12/23 11:14
I&O
09/11/23 09/12/23 09/13/23
06:59 06:59 06:59
Intake Total 960 / 960
Output Total 400 / 400
Balance 560 / 560
Physical Exam
-
General: Well Developed and Well Nourished
HEENT: Normocephalic and Atraumatic
Respiratory: Wheezes (faint)
Cardiac: Regular Rhythm and S1/S2
GI: Soft and Nontender
Genito-urinary: No Costovertebral Tender
Musculoskeletal: No Edema
Neuro: AO x 3
Hematologic / Lymphatic: No Lymphadenopathy
Psych: Calm
Data Reviewed
-
Total Time Spent with Patient (in minutes): 42
Labs: Labs Reviewed by me
[2023-09-12 15:35] VITALS: BP 122/72
[2023-09-12] MEDS: LOVENOX 40 MG SC (17:43)
[2023-09-12] MEDS: MELATONIN 3 MG PO (21:51)
[2023-09-12] MEDS: COZAAR 50 MG PO (21:51)
[2023-09-12] MEDS: CRESTOR 20 MG PO (21:51)
[2023-09-12 23:23] VITALS: BP 141/72
[2023-09-13 07:00] VITALS: BP 145/78
[2023-09-13] MEDS: SYMBICORT 160/4.5 MCG INHALER 2 PUFF INH (07:37)
[2023-09-13] MEDS: DUONEB 3 ML INH (07:37)
[2023-09-13 07:50] LABS: Hematocrit 45.2 % (39.0-52.0); Hemoglobin 15.3 g/dL (13.0-18.0); Mean Corp Hgb Conc. 33.8 g/dL (33.0-37.0); Mean Corpuscular Hgb 29.6 pg (27.0-31.0); Mean Corpuscular Volume 87.4 fL (80.0-94.0); Mean Platelet Volume 9.8 fL (7.4-10.4); Platelet Count 324 10^3/uL (130-400); Red Blood Cell Count 5.17 10^6/uL (4.70-6.10); Red Cell Dist. Width 14.4 % (11.5-14.5)
[2023-09-13] MEDS: MUCINEX 1200 MG PO (07:56)
[2023-09-13] MEDS: DELTASONE 50 MG PO (07:56)
[2023-09-13] MEDS: ASPIR LOW (ENTERIC COATED) 81 MG PO (07:57)
[2023-09-13] MEDS: LOPRESSOR 25 MG PO (07:57)
[2023-09-13] MEDS: PEPCID 20 MG PO (07:57)
[2023-09-13] MEDS: ORETIC 12.5 MG PO (07:57)
[2023-09-13] MEDS: NORVASC 5 MG PO (07:57)
[2023-09-13] MEDS: VIBRAMYCIN 100 MG PO (07:57)
[2023-09-13 08:11] LABS: Blood Urea Nitrogen 43 mg/dl (9-20); Calcium 9.5 mg/dl (8.4-10.2); Carbon Dioxide 27 mmol/L (22-30); Chloride 103 mmol/L (98-107); Estimated Creatinine Clearance 63 ml/min; Glucose 121 mg/dl (70-99); Potassium 4.2 mmol/L (3.5-5.1); Sodium 139 mmol/L (135-145); eGFR > 60.00
--- NOTE | 2023-09-13 08:58 | W.PN.PUL3 ---
Today's Communication / Plan
-
Continue systemic steroids and wean to OCS today now that patient is not wheezing and his cough has markedly improved as well
Continue supplemental oxygen and titrate to maintain SpO2 >88%
Up OOB as tolerated
Encourage incentive spirometer
Patient being prepared for discharge home. Pulmonary service will now sign off. Please send home on his new oxygen requirements. I will arrange for outpatient office follow-up within 1-2 weeks. Please reconsult if there are any additional
questions/concerns, or if patient's respiratory status deteriorates.
Assessment
-
Assessment: 83-year-old male with a past medical history of COPD/asthma, pulmonary nodule, GERD and former tobacco use disorder who presents with shortness of breath. Of note, patient follows with us in the [facility] office with Kiera Sandoval/James
Bhavani with last office visit on 08/15/2023. Azithromycin TIW was started at that visit, and is continued on Wixela 500mcg with as needed albuterol + DuoNebs 2�3 times daily which was recommended to him. Also recommended Mucinex and Tessalon
Mazin. He recommended to continue supplemental oxygen at 2 L/min with exertion. On 09/07 he presented to the ER where he was tachycardic and requiring 2 L/min nasal cannula with SpO2 91%. CXR showed no acute cardiopulmonary process. He was
started on antibiotics, DuoNebs and his home medications and then admitted to the hospitalist service. He has remained on 2-2.5 L/min nasal cannula and now pulmonary consulted for additional recommendations.
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
history of skin cancer
Impression:
#Acute COPD exacerbation (moderate severity at baseline with post-BD FEV1 of 1.3L/55%) - he believes he caught a virus from his 3 year old grandchild
#Acute on chronic respiratory failure with hypoxemia - currently on 2L/min NC
#Abnormal swallow study (done 09/10/2023) which is concerning for esophageal dysphagia
#Pulmonary nodules -
Multiple pulmonary nodules and pulmonary masses with the largest measures 4.5 cm bandlike in the medial CROW at the level of the AP window. Its interval development since CT chest on 05/31/2023 suggest a likely
benign etiology.
New 4 cm pleural-based area of parenchymal airspace disease in the posterior medial basilar portion of the LLL, with at PET avidity of 4.5 SUV and 4.7 SUV max on delayed imaging.
#Former tobacco use disorder
Plan:
- Continue LABA/ICS with Symbicort and prn nebulized bronchodilators (DuoNebs QID)
- Continue systemic steroids - on 09/11 he was on decadron 4mg IV q12hr --> today I tapered down to prednisone starting at 50mg and will reduce by 10mg every 4th day until off
- Aspiration precautions as per [employer]S
- Maintain SpO2 >88% and <96% - Prior 6 MWT from 08/15/2023 showed yoshi SpO2 of 91% and patient did not require oxygen therapy after walking 750 feet total
- Considering pt's acute flare, I will check walking O2 assessment prior to discharge --> done today, he needs 2L/min at rest (SpO2 dropped to 88% on RA), 4L/min with activity
- Maintain MAP >65
- Continue Doxy 100mg PO q12hr (assure pt is eating prior to taking PO ABx as this can cause significant nausea/vomiting)
- Follow up blood Cx X2 (collected 09/07); check sputum Cx if pt can provide a reliable sample; negative urine legionella/strep pneumonia antigens
- Trend leukocytes
- Continue mucolytics
- outpatient management of his lung nodules --> will order for end of this month as this will be a 3 month interval from his last PET/CT done on 06/28/2023
- Goal HR 60-100 bpm
- Replete electrolytes with goal K>4, Mg>2
- DVT ppx: LMWH
Patient being prepared for discharge home. Pulmonary service will now sign off. Please send home on his new oxygen requirements. I will arrange for outpatient office follow-up within 1-2 weeks. Thank you for allowing us to be involved in the
care of this patient. Please reconsult if there are any additional questions/concerns, or if patient's respiratory status deteriorates.
A moderate level of medical decision making was used for this encounter.
Data:
CXR 09-08-2023: No acute cardiopulmonary process.
PET/CT Whole-Body Skull-mid thigh 06-28-2023:
IMPRESSION:
There are several probably benign pulmonary lesions which demonstrate low-level FDG avidity, however, some areas increase in FDG avidity on delayed imaging and follow-up of these pulmonary lesions with CT chest in 6 months is recommended to exclude
more aggressive pathology.
These lesions include:
1). 1.5 cm spiculated pulmonary density in the medial aspect of the right upper lobe measuring 2.2 SUV max on initial imaging and 2.0 SUV max on delayed imaging
2). 1.9 cm pleural-based pulmonary lesion in the superior segment of the right lower lobe which measures 2.1 SUV max on initial imaging and 2.4 SUV max on delayed imaging
3). New 4.5 cm bandlike area of parenchymal airspace disease in the medial aspect of the left upper lobe at the level of the aorticopulmonary window measuring 8.2 SUV max on initial imaging an 8.7 SUV max on delayed imaging. Despite the relatively
high FDG avidity of this area, its interval development since the 05/31/2023 CT scan suggests probable benign etiology.
4). New 4 cm pleural-based area of parenchymal airspace disease in the posterior medial basilar portion of the left lower lobe which measures 4.5 SUV max on initial imaging and 4.7 SUV max on delayed imaging
5). New 1 cm pulmonary mass in the posterior basilar portion of the lingula which measures 1.6 SUV maximum initial imaging and 1.9 SUV max on delayed imaging
PFT 07-26-2022:
FEV1/FVC: 49 --> 51
FEV1: 63% --> 72% (1.73L) which is a +15% change with BD
FVC: 90% --> 100% (3.41L) which is a +11% change with BD
HDX39-55%: 33% --> 42%, which is a +26% change with BD
T% (6.9L)
RV: 118%
DLco: 24%
VA: 83% (5.26L)
DLco/VA: 28%
Subjective Data
-
Date of Service:
Date of Service: September 13, 2023
Chief Complaint: Pulmonary Follow Up
Subjective:
Patient seen this morning in he is doing well. Eager to go home. No acute events reported from overnight. Denies chest pain, headache, abdominal pain, diarrhea, fevers or chills.
Review of Systems
General: Other (Negative unless mentioned above)
Objective Data
Data Reviewed
Vital Signs / I&O / Oxygen:
Vital Signs
Temp Pulse Resp BP Pulse Ox
97.7 F 80 16 145/78 95
09/13/23 07:00 09/13/23 07:57 09/13/23 07:40 09/13/23 07:57 09/13/23 07:40
Intake and Output
09/12/23 09/13/23 09/14/23
06:59 06:59 06:59
Intake Total 960 / 960 360 / 360
Output Total 400 / 400
Balance 560 / 560 360 / 360
SaO2 95
Nasal Cannula flow liters per 2
minute
Physical Exam
General: Respiratory Distress (negative) and Comfortable
HEENT: Normocephalic and Anicteric
Cardiovascular: S1-S2 and Peripheral Edema (negative)
Respiratory: Clear, Wheeze (negative), Crackles (negative), Rhonchi (negative) and Non-Labored Respirations
GI: Soft, Non Distended and Non Tender
Neurology: AO x 3
Skin: Warm and Dry
Labs/Micro/Reports
Lab Data
09/13/23 07:01
09/13/23 07:01
Microbiology
09/08/23 12:29 Blood/Venous Blood Culture - Final
No Growth - Final Report
09/08/23 14:46 Blood/Venous Blood Culture - Preliminary
No Growth in 4 days- Final report to follow
09/11/23 10:49 Urine Legionella Urinary Antigen - Final
Negative for Legionella pneumophila Serogroup 1 antigen.
A negative result does not rule out the possiblity of
Legionella infection due to other serogroups or species of
Legionella. Clinical correlation is recommended.
09/11/23 10:49 Urine Streptococcus pneumoniae Antigen (M - Final
Negative for Streptococcus pneumoniae antigen.
A negative result does not exclude infection with
Streptococcus pneumoniae. Clinical correlation is
recommended.
--- NOTE | 2023-09-13 11:28 | W.PN.HOSP.TC ---
Addendum entered and electronically signed by Shannon Marie MD 09/13/23 17:12:
moderate protein calorie malnutrition of chronic illness
Addendum entered and electronically signed by Shannon Marie MD 09/13/23 11:49:
Patient is in need of oxygen at 2 liters/minute via nasal cannula continuously due to pulse oximetry of 88% on room air at rest. Oxygen will help to improve hypoxemia. Patient is mobile within the home. DuoNeb therapy has been tried and is
ineffective in treating hypoxemia related symptoms. Oxygen is needed to improve symptoms.
Patient will require 2L/Min at rest and 4L/MIN with exertion
Original Note:
Today's Communication/Plan
-
dc home
Assessment / Plan
Assessment / Plan
83-year-old male with history of COPD and current recently started on oxygen as needed, hypertension and CAD with 2 stent who lives independently at home with , presented to the hospital complaining of shortness of breath and cough productive
cough clear yellowish phlegm over the last 4 days, he was exposed to his grandson when he is up respiratory tract symptoms shortly after experienced the above-mentioned symptoms, no subjective fever but admits chills, the shortness of breath with
exertion would bother him the most is a cough especially in the morning, despite using his rescue inhaler and nebulizer frequently throughout the day there is not much improvement, no chest pain or urinary or GI symptom, no headache or vision
change, chest x-ray in the ER clear, given breathing treatment and placed on oxygen in the ER.
He is awake, alert and oriented x 3 hold appropriate conversation, and at the bedside.
Patient is fully vaccinated for COVID with boosters and influenza vaccine this year/also Pneumovax.
Assessment:
Chronic hypoxemic respiratory failure on 2L NC
Acute COPD exacerbation
Acute bronchitis
- dc on prednisone taper
- continue doxycycline 100mg BID x 4/5 days; stop Azithromycin. Noted procal negative. strep/legionella negative
- continue nebs scheduled and prn
- mucolytics therapy
- pulm following
Essential HTN - continue Amlodipine/HCTZ/ARB/BB
CAD s/p stents
HLD
- continue ASA/statin
reports concern for dysphagia outpatient with VSE planned in 48 hours
- IDDSI Level 6 (Soft/bite sized), IDDSI Level 0 (Thin Liquids)
Heartburn/GERD
- H2 graciela.
Lung nodule
- repeat imaging outpatient
DVT ppx: Lovenox
Code: Full
More than 30 minutes spent in discharge including
Final examination of the patient
Summarizing hospital stay
Instructions for continuing care to all relevant caregivers
Preparation of discharge records, prescriptions, and referral forms
Total time spent (in minutes):41
Anticipated Discharge: Today
Subjective/Interval History
-
Date of Service: September 13, 2023
no complaints, feels well
Objective Data
-
Labs:
Laboratory Results
09/13/23
07:01
WBC 11.0 H
Hgb 15.3
Hct 45.2
Plt Count 324
Sodium 139
Potassium 4.2
Chloride 103
Carbon Dioxide 27
BUN 43 H
Creatinine 0.8
Glucose 121 H
Calcium 9.5
Vital Signs:
Vital Signs
Temp Pulse Resp BP Pulse Ox
97.7 F 80 16 145/78 95
09/13/23 07:00 09/13/23 07:57 09/13/23 07:40 09/13/23 07:57 09/13/23 07:40
I&O
09/12/23 09/13/23 09/14/23
06:59 06:59 06:59
Intake Total 960 / 960 360 / 360
Output Total 400 / 400
Balance 560 / 560 360 / 360
Physical Exam
-
General: No Apparent Distress
HEENT: Normocephalic and Atraumatic
Respiratory: Negative Wheezes
Cardiac: Regular Rhythm and S1/S2
GI: Soft and Nontender
Genito-urinary: No Costovertebral Tender
Neuro: AO x 3
Psych: Calm
Data Reviewed
-
Total Time Spent with Patient (in minutes): 42
Labs: Labs Reviewed by me
[2023-09-13] MEDS: DUONEB INH (11:39)
--- NOTE | 2023-09-13 11:46 | W.DS.TRANS ---
DC Summary - [employer]
-
Discharge Instructions:
Discharge Diagnosis/Procedures acute COPD exacerbation
Diet Other diet
Additional Diets IDDSI Level 6 (Soft/bite sized), IDDSI Level 0 (
Thin Liquids)
Activity As tolerated
Bathing Restrictions None
Instructions:
Stand-Alone Forms:
Changes to Home Medications: No
Discharge Medications:
DC Medications w/original date entered in [employer]
albuterol sulfate 90 mcg/actuation aerosol inhaler (Ventolin HFA) 2 puff inhalation R Q4HPRN PRN shortness of breath 07/16/18
amlodipine 5 mg tablet 5 mg PO DAILY Blood Pressure 07/16/18
aspirin 81 mg tablet,delayed release 81 mg PO BID Blood Clot Prevention/Tx 07/16/18
hydrochlorothiazide 12.5 mg tablet 12.5 mg PO DAILY Fluid Retention/Swelling 07/16/18
losartan 50 mg tablet 50 mg PO HS Blood Pressure 07/16/18
metoprolol tartrate 25 mg tablet 25 mg PO BID Blood Pressure 07/16/18
multivitamin with folic acid 400 mcg tablet (Tab-A-Nick) 1 tab PO DAILY Supplement 07/16/18
rosuvastatin 20 mg tablet 20 mg PO HS High Cholesterol 07/16/18
vitamin E (dl, acetate) 45 mg (100 unit) capsule 45 mg PO DAILY Supplement 09/08/23
ezetimibe 10 mg tablet (Zetia) 10 mg PO DAILY High Cholesterol 09/11/23
fluticasone 500 mcg-salmeterol 50 mcg/dose blistr powdr for inhalation (Wixela Inhub) 1 inh inhalation R BID COPD 09/11/23
ipratropium 0.5 mg-albuterol 3 mg (2.5 mg base)/3 mL nebulization soln 3 ml inhalation R Q4HPRN PRN shortness of breath/wheezing 09/11/23
doxycycline hyclate 100 mg capsule 100 mg PO Q12 #3 caps 09/13/23
famotidine 20 mg tablet 20 mg PO BID #60 tabs 09/13/23
guaifenesin 600 mg tablet, extended release 12 hr 1,200 mg PO Q12 #20 tabs 09/13/23
prednisone 10 mg tablet 10 mg PO DIRECTED #60 tabs 09/13/23
Home Medication Changes
Pending Results: No
Total time spent discharging patient (in min): 41
--- NOTE | 2023-09-13 14:20 | PN.CDI ---
CDI
- -
CDI:
Physician Documentation Request
Admit Date: 09/10/23 08:08
Dear Doctor Cynthia,
Patient admitted with COPD exacerbation.
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
Please provide in your progress notes, additional specificity regarding the severity of the malnutrition:
Mild
Moderate
Severe
Other (please specify)
[place] Criteria ([facility] Hospitalist 2017)
2 or more criteria must be present for either
non severe or severe malnutrition
Note that the criteria differs related to the
presence of an acute or chronic illness
Chronic Illness
Energy Intake Non Severe: <75% for >1 month
Severe: <75% for >1 month
Weight Loss Non Severe: 5% over 1 month
7.5% over 3 months
10% over 6 months
20% over 1 year
Severe: >5% over 1 month
>7.5% over 3 months
>10% over 6 months
>20% over 1 year
Body Fat Non Severe: Mild Loss
Severe: Severe Loss
Muscle Mass Non Severe: Mild Loss
Severe: Severe Loss
Fluid Accumulation Non Severe: Mild Accumulation
Severe: Moderate to severe
accumulation
Reduced Varnish [employer]er Strength Non Severe: N/A
Severe: Measurably reduced
Use of terms such as suspected, likely, concern for, or probable (associated with a specific diagnosis that is being evaluated, monitored, or treated as if it exists) are acceptable and can be coded in the inpatient setting, when documented at the
time of discharge.
Thank you,
Irlanda DEL ANGEL,RN,CCCDS
CDI Specialist
Available via [employer]
Please use your independent medical judgment in providing your response.
== END 2023-09-13 13:06 | disposition home or self-care (01) | DRG 191 ==
LOC: 3 WEST ACU 08:08
PROVIDERS: Internal Medicine; ADMITTING PHYSICIAN Internal Medicine; ATTENDING PHYSICIAN Internal Medicine; CONSULT PHYSICIAN Internal Medicine Critical Care Medicine; EMERGENCY PHYSICIAN Emergency Medicine; FAMILY PHYSICIAN Family Medicine
DX: J44.0 Chronic obstructive pulmonary disease with (acute) lower respiratory infection (principal); E44.0 Moderate protein-calorie malnutrition; J96.11 Chronic respiratory failure with hypoxia; J44.1 Chronic obstructive pulmonary disease with (acute) exacerbation; E78.00 Pure hypercholesterolemia, unspecified; I25.10 Atherosclerotic heart disease of native coronary artery without angina pectoris; J20.9 Acute bronchitis, unspecified; I10 Essential (primary) hypertension; R13.10 Dysphagia, unspecified; K21.9 Gastro-esophageal reflux disease without esophagitis; R91.1 Solitary pulmonary nodule; Z87.891 Personal history of nicotine dependence; Z95.5 Presence of coronary angioplasty implant and graft; Z79.82 Long term (current) use of aspirin; Z79.52 Long term (current) use of systemic steroids; Z68.21 Body mass index [BMI] 21.0-21.9, adult
CPT/HCPCS: 71045; 74230; 80048; 83880; 84145; 84484; 85025; 85027; 87040; 87449; 87502; 87811; 87899; 92526; 92611; 93005; 94640; 94644; 94760; 96374; 97162; 99285

== ENCOUNTER → 2023-10-11 10:44 | Outpatient (REF) | payer MEDICARE, OTHER, SELFPAY | LOC: HWRAD 10:44 | PROVIDERS: ATTENDING PHYSICIAN Internal Medicine Critical Care Medicine; FAMILY PHYSICIAN Family Medicine | DX: R91.8 Other nonspecific abnormal finding of lung field (principal) | CPT/HCPCS: 71250 ==

== ENCOUNTER → 2024-01-11 10:09 | Outpatient (REF) | payer MEDICARE, OTHER, SELFPAY | LOC: HWRAD 10:09 | PROVIDERS: ATTENDING PHYSICIAN Internal Medicine Critical Care Medicine; FAMILY PHYSICIAN Family Medicine | DX: R93.89 Abnormal findings on diagnostic imaging of other specified body structures (principal); R91.8 Other nonspecific abnormal finding of lung field | CPT/HCPCS: 71250 ==

== ENCOUNTER → 2024-08-11 10:23 | Outpatient (REF) | payer MEDICARE, OTHER, SELFPAY | LOC: HWRAD 10:23 | PROVIDERS: ATTENDING PHYSICIAN Internal Medicine Critical Care Medicine; FAMILY PHYSICIAN Family Medicine | DX: R91.8 Other nonspecific abnormal finding of lung field (principal) | CPT/HCPCS: 71250 ==